=== PATIENT | male | born 2000 | race Two or more races ===

== ENCOUNTER 2022-11-16 17:27 | Emergency (ER) | payer OTHER, SELFPAY ==
--- NOTE | ~2022-11-16 | XR_ITS ---
EXAMINATION: XR ankle RT min 3V DATE: 11/16/2022 17:45 INDICATION: Lateral right ankle injury with palpable pop TECHNIQUE: Anteroposterior, oblique, mortise, and lateral views of the right ankle were obtained. COMPARISON: None. FINDINGS: Alignment is normal. No fracture. Joint spaces are well maintained. No ankle joint effusion. The so ft tissues are unremarkable. IMPRESSION: 1. Normal right ankle radiographs. Reviewed, dictated and finalized at location A.
--- NOTE | 2022-11-16 17:36 | ED.GENADULT ---
HPI - General Adult General Chief complaint: Extremity Injury, Lower Stated complaint: Rt Ankle Pain Time Seen by Provider: 11/16/22 17:37 Source: patient Mode of arrival: ambulatory Limitations: no limitations History of Present Illness HPI narrative: 22-year-old male patient presents to [facility] with complaints of right ankle pain after playing soccer today. 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 Denies any falls that he is aware of. Denies any numbness or tingling currently. Patient states he has only iced it prior to arrival today did not take anything for pain. Related Data Home Medications Medication Instructions Recorded Confirmed No Home Medications 11/16/22 11/16/22 Allergies Allergy/AdvReac Type Severity Reaction Status Date / Time No Known Allergies Allergy Verified 11/16/22 17:42 Review of Systems Review of Systems: CONSTITUTIONAL: Denies fever, chills, or sweats. EYES: Denies visual changes, redness, or discharge. ENT: Denies rhinorrhea, congestion, sore throat, or otalgia. CARDIOVASCULAR: Denies chest pain, palpitations, or edema. RESPIRATORY: Denies cough or dyspnea. GASTROINTESTINAL: Denies abdominal pain, nausea, vomiting, or diarrhea. GENITOURINARY: Denies dysuria or hematuria. SKIN: Denies rash or itching. MUSCULOSKELETAL: Denies back pain, joint pain, or myalgia. Positive right ankle pain NEUROLOGIC: Denies headache, numbness, or weakness. PSYCHIATRIC: Denies anxiety or depression. PMFSH Comments At the time of my signature I agree with nursing past medical history, surgical, social, and family history. There is no relevant family history pertinent to the presenting complaint. Exam Narrative: GENERAL: Well-appearing, well-nourished, and in no acute distress. HEAD: Normocephalic, atraumatic. EYES: PERRLA and EOMI. ENT: Nares clear, no rhinorrhea or epistaxis. Mucous membranes moist. NECK: Supple. No lymphadenopathy CHEST: Clear to auscultation. No respiratory distress. HEART: Regular rate and rhythm. No murmur heard. Normal peripheral pulses. ABDOMEN: Soft, nontender, nondistended, normal active bowel sounds. EXTREMITIES: Patient is able to bear weight and ambulate. The R ankle is without obvious asymmetry or deformity when compared to the L ankle. Patient can flex/extend, invert/slick. noticeable talk soft tissue swelling noted to the lateral side of the right ankle. No ecchymosis. No body tenderness to palpation over the medial or lateral malleolus. tenderness over the Anterior talofibular ligament, no tenderness over the posterior talofibular ligament, calcaneofibular ligament nontender and without swelling. No tenderness or deformity of the midfootor over the proximal fifth metatarsal. Good DP and posterior tibial pulses and sensation to light touch normal. Talar tilt test is negative for ligament laxity to valgus or vargus stress. Negative anterior draw. Peroneal nerve is intact with strong eversion and plantar flexion. SKIN: Warm, dry, no rash. NEURO: No focal deficits. Alert and oriented x3. Course Course Level of Care: Express Care Visit Reevaluation(s) Reevaluation #1: re-evaluated patient notified him that the x-ray is negative for any acute fractures. We will wrap it with an Rafael wrap and offered crutches. Patient should follow-up with primary doctor for further evaluation treatment as needed. Date: 11/16/22 Time: 17:57 Vital Signs Vital signs: Vital Signs Temperature 36.6 C 11/16/22 17:37 Pulse Rate 72 11/16/22 17:37 Respiratory Rate 16 11/16/22 17:37 Blood Pressure 135/73 11/16/22 17:37 Pulse Oximetry 100 11/16/22 17:37 Oxygen Delivery Room Air 11/16/22 17:37 Temperature 36.6 C 11/16/22 17:37 Pulse Rate 72 11/16/22 17:37 Respiratory Rate 16 11/16/22 17:37 Blood Pressure 135/73 11/16/22 17:37 Pulse Oximetry 100 11/16/22 17:37 Oxygen Delivery Room Air
[2022-11-16 17:37] VITALS: BP 135/73; PULSE 72; RESP 16; TEMP 36.6; O2SAT 100
== END 2022-11-16 18:00 | disposition home or self-care (01) ==
PROVIDERS: Emergency Provider Nurse Practitioner Family
DX: S93.401A Sprain of unspecified ligament of right ankle, initial encounter (principal); X50.9XXA Other and unspecified overexertion or strenuous movements or postures, initial encounter; Y93.66 Activity, soccer
CPT/HCPCS: 73610; 99203; G0463